=== PATIENT | male | born 1950 | race African-American/Black ===

== ENCOUNTER 2020-06-23 13:58 | Inpatient (IN) | payer OTHER ==
[2020-06-23 14:15] VITALS: BMI 18.7
[2020-06-23] MEDS ORDERED: FAMOTIDINE 20 MG/50 ML IVPB 20 MG/50 ML MG IVPB ONE ×2 (15:09→15:26)
[2020-06-23] MEDS ORDERED: ACETAMINOPHEN 1000 MG/100 ML VIAL (NON FORMULARY) IVPB ONE (15:10)
[2020-06-23] MEDS ORDERED: ACETAMINOPHEN INJECTION 100 ML IVPB ONE (15:26)
[2020-06-23 15:41] LABS: INR 1.04 (0.83-1.09); PROTHROMBIN TIME (PATIENT) 12.8 SEC (9.7-13.0)
[2020-06-23 15:43] LABS: ACTIVATED PTT 31.1 SECONDS (25.2-36.5); EOS % 8.5 % (0-4.5); HEMATOCRIT 34.8 % (35.4-49); HEMOGLOBIN 11.3 GM/dL (11.7-16.9); LYMPH % 16.5 % (8-40); MCH 25.8 pg (25.7-33.7); MCHC 32.6 g/dl (32.0-35.9); MEAN CELL VOLUME 79.3 fl (80-96); MEAN PLT VOLUME 9.8 fl (7.5-11.1); PLATELET COUNT 143 K/MM3 (134-434); RBC 4.39 M/mm3 (4.00-5.60); RDW 17.1 % (11.9-15.9); WHITE BLOOD COUNT 4.9 K/mm3 (4.0-10.0)
[2020-06-23 15:49] LABS: ALBUMIN 2.5 g/dl (3.4-5.0); CALCIUM 8.8 mg/dL (8.5-10.1)
[2020-06-23 15:50] LABS: BLOOD UREA NITROGEN 24.2 mg/dL (7-18)
[2020-06-23 15:53] LABS: CREATININE 3.4 mg/dL (0.55-1.3)
[2020-06-23 15:54] LABS: BILIRUBIN,TOTAL 0.4 mg/dL (0.2-1); TOT PROT 6.9 g/dl (6.4-8.2)
[2020-06-23 15:56] LABS: POTASSIUM 7.5 mmol/L (3.5-5.1)
[2020-06-23] MEDS: PHENYLEPHRINE HCL/COCOA BUTTER SUPPOSITORY RC SCH (18:20)
[2020-06-23] MEDS ORDERED: METOCLOPRAMIDE HCL INJECTION 10 MG/2 ML VIAL IVPUSH PRN (20:16)
[2020-06-23] MEDS ORDERED: BISACODYL 5 MG TABLET.DR (FP) PO PRN (20:16)
[2020-06-23] MEDS ORDERED: BENZOCAINE 28 GM HEMORRHOIDAL OINTMENT PR PRN (20:30)
[2020-06-23] MEDS: PSYLLIUM 5.85 GM PACKET PO SCH (21:28)
[2020-06-23] MEDS: ACETAMINOPHEN 325 MG TABLET (FP) PO PRN (22:15)
[2020-06-23] MEDS: INSULIN SLIDING SCALE (NOVOLOG) 1 VIAL SQ SCH (23:17)
[2020-06-24] MEDS ORDERED: NITROGLYCERIN SUBLINGUAL 1/150 0.4 MG TAB ONE (01:24)
[2020-06-24] MEDS ORDERED: PT OWN MED DRAWER 7, Y5N ONE ×2 (01:26→09:44)
[2020-06-24] MEDS: INSULIN SLIDING SCALE (NOVOLOG) 1 VIAL SQ SCH ×4 (06:10→22:36)
[2020-06-24 07:29] LABS: BASO % 1.2 % (0-2.0); EOS % 7.9 % (0-4.5); HEMATOCRIT 35.3 % (35.4-49); HEMOGLOBIN 11.6 GM/dL (11.7-16.9); LYMPH % 18.1 % (8-40); MCH 26.2 pg (25.7-33.7); MCHC 32.9 g/dl (32.0-35.9); MEAN CELL VOLUME 79.5 fl (80-96); NEUT % 62.8 % (42.8-82.8); PLATELET COUNT 149 K/MM3 (134-434); RBC 4.44 M/mm3 (4.00-5.60); RDW 16.8 % (11.9-15.9); WHITE BLOOD COUNT 5.1 K/mm3 (4.0-10.0)
[2020-06-24] MEDS ORDERED: LIDOCAINE 2%/EPINEPHRINE 1:100000 (50 ML MD VIAL) INF ONE (07:55)
[2020-06-24 07:58] LABS: POTASSIUM 4.1 mmol/L (3.5-5.1)
[2020-06-24 08:02] LABS: CALCIUM 8.7 mg/dL (8.5-10.1)
[2020-06-24 08:04] LABS: ALBUMIN 2.5 g/dl (3.4-5.0); BLOOD UREA NITROGEN 33.8 mg/dL (7-18); MAGNESIUM 2.2 mg/dL (1.8-2.4)
[2020-06-24 08:07] LABS: CREATININE 4.5 mg/dL (0.55-1.3); PHOSPHOROUS 3.6 mg/dL (2.5-4.9)
[2020-06-24 08:09] LABS: BILIRUBIN,TOTAL 0.4 mg/dL (0.2-1)
[2020-06-24 08:10] LABS: TOT PROT 6.6 g/dl (6.4-8.2)
[2020-06-24] MEDS ORDERED: LIDOCAINE HCL 1%, 10 MG/ML (20ML VIAL) ONE (08:43)
[2020-06-24] MEDS ORDERED: PIPERACILLIN/TAZOB 3.375 GM 3.375 GM in DEXTROSE 5%-WATER - 50 ML IVPB ONE (08:52)
[2020-06-24] MEDS ORDERED: PIPERACILLIN/TAZOBACTAM 3.375 GM VIAL IVPB ONE (09:44)
[2020-06-24] MEDS ORDERED: DEXTROSE 5%-WATER - 50 ML IVPB ONE (09:44)
[2020-06-24] MEDS: PSYLLIUM 5.85 GM PACKET PO SCH (10:00)
[2020-06-24] MEDS: PETROLATUM, WHITE 30 GM TUBE TP SCH (10:00)
[2020-06-24] MEDS ORDERED: PETROLATUM, WHITE 30 GM TUBE TP SCH (10:00)
[2020-06-24] MEDS ORDERED: SODIUM CHLORIDE 250 ML IV PRN (13:21)
[2020-06-24] MEDS: PHENYLEPHRINE HCL/COCOA BUTTER SUPPOSITORY RC SCH (16:52)
[2020-06-24] MEDS: ACETAMINOPHEN 325 MG TABLET (FP) PO PRN ×2 (17:25→22:36)
[2020-06-24] MEDS ORDERED: traMADol HCL 50 MG TABLET PO ONE (17:39)
[2020-06-24] MEDS: WITCH HAZEL 50% (TUCKS) 40 PAD/JAR PAD TP PRN (22:37)
[2020-06-25] MEDS ORDERED: amLODIPine BESYLATE 5 MG TABLET (FP) PO STA (05:52)
[2020-06-25] MEDS ORDERED: METOPROLOL TARTRATE 25 MG TABLET (FP) PO STA (05:52)
[2020-06-25] MEDS: INSULIN SLIDING SCALE (NOVOLOG) 1 VIAL SQ SCH ×4 (06:00→21:01)
[2020-06-25] MEDS ORDERED: PT OWN MED DRAWER 7, Y5N ONE ×2 (06:28→16:41)
[2020-06-25 10:52] LABS: HEMATOCRIT 36.2 % (35.4-49); HEMOGLOBIN 11.8 GM/dL (11.7-16.9); MCH 25.8 pg (25.7-33.7); MCHC 32.5 g/dl (32.0-35.9); MEAN CELL VOLUME 79.5 fl (80-96); MEAN PLT VOLUME 10.5 fl (7.5-11.1); PLATELET COUNT 162 K/MM3 (134-434); RBC 4.56 M/mm3 (4.00-5.60); RDW 17.5 % (11.9-15.9)
[2020-06-25 11:36] LABS: BLOOD UREA NITROGEN 51.6 mg/dL (7-18); CALCIUM 8.9 mg/dL (8.5-10.1); CREATININE 6.1 mg/dL (0.55-1.3); POTASSIUM 4.8 mmol/L (3.5-5.1)
[2020-06-25] MEDS: PSYLLIUM 5.85 GM PACKET PO SCH (16:49)
[2020-06-25] MEDS: BACITRACIN 15 GM TUBE TOPICAL OINTMENT TP SCH (16:51)
[2020-06-25] MEDS: POVIDONE-IODINE 10% SOLN 118 ML BOTTLE TP SCH (16:51)
[2020-06-25] MEDS: PHENYLEPHRINE HCL/COCOA BUTTER SUPPOSITORY RC SCH (16:52)
[2020-06-25] MEDS: WITCH HAZEL 50% (TUCKS) 40 PAD/JAR PAD TP PRN (16:52)
[2020-06-25] MEDS: PETROLATUM, WHITE 30 GM TUBE TP SCH (16:52)
[2020-06-26] MEDS: INSULIN SLIDING SCALE (NOVOLOG) 1 VIAL SQ SCH ×4 (07:37→21:45)
[2020-06-26 07:55] LABS: BASO % 0.8 % (0-2.0); EOS % 5.7 % (0-4.5); HEMATOCRIT 35.8 % (35.4-49); HEMOGLOBIN 11.6 GM/dL (11.7-16.9); LYMPH % 16.1 % (8-40); MCH 25.8 pg (25.7-33.7); MCHC 32.4 g/dl (32.0-35.9); MEAN CELL VOLUME 79.7 fl (80-96); MEAN PLT VOLUME 10.5 fl (7.5-11.1); MONO % 11.1 % (3.8-10.2); NEUT % 66.3 % (42.8-82.8); PLATELET COUNT 143 K/MM3 (134-434); RBC 4.49 M/mm3 (4.00-5.60); RDW 17.2 % (11.9-15.9); WHITE BLOOD COUNT 5.8 K/mm3 (4.0-10.0)
[2020-06-26 08:10] LABS: POTASSIUM 4.1 mmol/L (3.5-5.1)
[2020-06-26 08:11] LABS: CALCIUM 8.4 mg/dL (8.5-10.1)
[2020-06-26 08:12] LABS: MAGNESIUM 2.1 mg/dL (1.8-2.4)
[2020-06-26 08:14] LABS: ALBUMIN 2.3 g/dl (3.4-5.0); BLOOD UREA NITROGEN 31.8 mg/dL (7-18)
[2020-06-26 08:16] LABS: CREATININE 4.4 mg/dL (0.55-1.3)
[2020-06-26 08:17] LABS: BILIRUBIN,TOTAL 0.7 mg/dL (0.2-1); TOT PROT 6.2 g/dl (6.4-8.2)
[2020-06-26] MEDS ORDERED: PT OWN MED DRAWER 7, Y5N ONE (09:56)
[2020-06-26] MEDS: POVIDONE-IODINE 10% SOLN 118 ML BOTTLE TP SCH (12:43)
[2020-06-26] MEDS: BACITRACIN 15 GM TUBE TOPICAL OINTMENT TP SCH (12:43)
[2020-06-26] MEDS: PHENYLEPHRINE HCL/COCOA BUTTER SUPPOSITORY RC SCH (12:43)
[2020-06-26] MEDS: PETROLATUM, WHITE 30 GM TUBE TP SCH (12:44)
[2020-06-26] MEDS: PSYLLIUM 5.85 GM PACKET PO SCH (12:44)
[2020-06-26 14:26] VITALS: BP 152/83; PULSE 70; TEMP 98.6
[2020-06-26] MEDS ORDERED: traMADol HCL 50 MG TABLET PO PRN (15:25)
[2020-06-26 21:11] LABS: HEP B CORE AB, TOT Positive (Negative)
== END 2020-06-26 23:02 | DRG 638 ==
LOC: JER 13:58 → JERBED 14:54 → J7W 22:01
PROVIDERS: ADMIT Hospitalist; ATTEND Nurse Practitioner Acute Care
PROC: 5A1D70Z Performance of Urinary Filtration, Intermittent, Less than 6 Hours Per Day (ICD-10-PCS; principal; 2020-06-25)
DX: E11.622 Type 2 diabetes mellitus with other skin ulcer (principal); I12.0 Hypertensive chronic kidney disease with stage 5 chronic kidney disease or end stage renal disease; I48.92 Unspecified atrial flutter; L97.908 Non-pressure chronic ulcer of unspecified part of unspecified lower leg with other specified severity; N18.6 End stage renal disease; E11.22 Type 2 diabetes mellitus with diabetic chronic kidney disease; E11.51 Type 2 diabetes mellitus with diabetic peripheral angiopathy without gangrene; K64.9 Unspecified hemorrhoids; D64.9 Anemia, unspecified; R74.01 Elevation of levels of liver transaminase levels; N63.0 Unspecified lump in unspecified breast; Z99.2 Dependence on renal dialysis; Z89.512 Acquired absence of left leg below knee
CPT/HCPCS: 36415; 76604; 76775-TC; 80048; 80053; 83735; 84100; 84132; 85025; 85027; 85610; 85651; 85730; 86140; 86704; 86706; 86707; 86708; 86709; 86803; 87040; 87340; 87804; 93005; 93010; 97116-GP; 97162-GP; 99285-25; C9803; G0463; G0480; J0131; U0003

== ENCOUNTER 2020-10-07 04:33 | Day surgery (SDC) | payer OTHER ==
[2020-10-06 15:24] VITALS: BMI 20.9
[2020-10-07 08:37] LABS: INR 2.62 (0.83-1.09); PROTHROMBIN TIME (PATIENT) 31.3 SEC (9.7-13.0)
[2020-10-07] MEDS ORDERED: MIDAZOLAM HCL 2 MG/2 ML SINGLE DOSE VIAL ONE (10:37)
[2020-10-07] MEDS ORDERED: PROPOFOL 20 ML ONE ×2 (10:37→11:25)
[2020-10-07] MEDS ORDERED: LIDOCAINE HCL 1%, 10 MG/ML (20ML VIAL) NR ONE (11:02)
[2020-10-07] MEDS ORDERED: HEPARIN NA (PORCINE) 5,000 UNITS/ML 1ML VIAL SQ ONE (11:09)
[2020-10-07] MEDS ORDERED: ONDANSETRON 4 MG/2 ML VIAL IVPUSH PRN (11:58)
[2020-10-07 14:23] VITALS: TEMP 97.8
[2020-10-07 14:25] VITALS: BP 146/64; PULSE 58
== END 2020-10-07 14:20 ==
LOC: JASU-SURG 04:33
PROVIDERS: ATTEND Surgery
PROC: 031C0ZF Bypass Left Radial Artery to Lower Arm Vein, Open Approach (ICD-10-PCS; principal; 2020-10-07 10:00)
DX: I12.0 Hypertensive chronic kidney disease with stage 5 chronic kidney disease or end stage renal disease (principal); E11.22 Type 2 diabetes mellitus with diabetic chronic kidney disease; N18.6 End stage renal disease; Z99.2 Dependence on renal dialysis; J44.9 Chronic obstructive pulmonary disease, unspecified; Z99.81 Dependence on supplemental oxygen
CPT/HCPCS: 36415; 82947; 84132; 85610; 94760; J1644